=== PATIENT | male | born 1955 | race Caucasian/White ===

== ENCOUNTER 2020-11-04 12:00 | Emergency (ER) | payer OTHER ==
[~2020-11-04] VITALS: Ht 175.3 cm; Wt 90.9 kg
[~2020-11-04 12:00] MED LIST: ACET-2247 PO; AMLO5TAB66 PO; ASPI-1227 PO; ATOR20TA86 PO; CHOL200016 PO; DULO-8 PO; INSNOV SQ; INSU100I26 SQ; LISI-892 PO; MULT-1077 PO; SULF1TAB41 PO
[2020-11-04] MEDS ORDERED: BACITRACIN 0.9 GM PACKET OINTMENT TP ONE (14:30)
[2020-11-04 14:47] LABS: BASOPHILS % (AUTO) 0.7 % (0.0-2.0); EOSINOPHILS % (AUTO) 3.3 % (1.0-6.0); HEMATOCRIT 38.7 % (41-53); HEMOGLOBIN 12.8 g/dL (13.5-17.5); LYMPHOCYTES % (AUTO) 19.5 % (22.0-44.0); MEAN CORPUSCULAR HEMOGLOBIN 28.6 pg (26.0-34.0); MEAN CORPUSCULAR HGB CONC 33.1 G/dL (31.0-37.0); MEAN CORPUSCULAR VOLUME 87 fL (80-100); MONOCYTES # (AUTO) 0.7 K/uL (0.1-1.0); MONOCYTES % (AUTO) 6.4 % (2.0-9.0); NEUTROPHILS # (AUTO) 7.3 K/uL (1.8-7.7); NEUTROPHILS % (AUTO) 70.1 % (40.0-70.0); PLATELET COUNT (AUTO) 274 K/uL (150-450); RED BLOOD CELL COUNT(AUTO) 4.48 MIL/uL (4.50-5.90); RED CELL DISTRIBUTION WIDTH 13.7 % (11.5-14.5)
[2020-11-04 15:00] LABS: CALCIUM, TOTAL 9.4 mg/dL (8.8-10.5); CREATININE 1.27 mg/dL (0.60-1.30); POTASSIUM 4.5 mmol/L (3.5-5.1)
[2020-11-04 15:04] LABS: ALBUMIN 3.6 g/dL (3.4-5.0); BILIRUBIN,TOTAL 0.4 mg/dL (0.1-1.0); TOTAL PROTEIN, SERUM 7.2 g/dL (6.4-8.2)
[2020-11-04 15:21] VITALS: BP 161/87
== END 2020-11-04 16:10 | disposition home or self-care (01) ==
LOC: EMS 12:00
DX: S91.105A Unspecified open wound of left lesser toe(s) without damage to nail, initial encounter (principal); F32.9 Major depressive disorder, single episode, unspecified; E11.9 Type 2 diabetes mellitus without complications; E78.00 Pure hypercholesterolemia, unspecified; I10 Essential (primary) hypertension; Z79.899 Other long term (current) drug therapy; Z79.4 Long term (current) use of insulin; X58.XXXA Exposure to other specified factors, initial encounter; Y93.89 Activity, other specified; Y92.89 Other specified places as the place of occurrence of the external cause; Y99.8 Other external cause status
CPT/HCPCS: 80053; 82962; 85025; 99284